=== PATIENT | female | born 1970 | race Caucasian/White ===

== ENCOUNTER 2016-11-04 22:24 | Emergency (ER) | payer OTHER ==
[~2016-11-04 22:24] MED LIST: ALPRAZOLAM PO; DEPAKOTE PO; FLEXERIL10 M1 PO; MEDROL PO; MOBIC PO; PREDNISONE PO; VICODIN 5/500 T1 TAB PO; VOLTAREN75 MG PO
== END 2016-11-05 01:15 | disposition left against medical advice (07) ==
LOC: CED 22:24
DX: Z53.21 Procedure and treatment not carried out due to patient leaving prior to being seen by health care provider (principal)